=== PATIENT | female | born 1960 | race African-American/Black ===

== ENCOUNTER 2023-12-13 19:56 | Emergency (ER) | payer BC ==
[~2023-12-13] VITALS: Ht 162.6 cm; Wt 73.0 kg
[2023-12-13 21:38] VITALS: BP 150/71; PULSE 74; RESP 17; TEMP 98; O2SAT 100
[2023-12-14 00:41] LABS: BASOPHILS % 1.3 % (0.0-2.0); DIFFERENTIAL COMMENT 0; EOSINOPHILS % 4.4 % (0.0-5.0); HEMATOCRIT. 34.2 % (36.0-48.0); HEMOGLOBIN. 10.8 g/dL (12.0-16.0); LYMPHOCYTES % 41.1 % (20.0-50.0); MEAN CORPUSCULAR HEMOGLOBIN 23.6 pg (28.0-32.0); MEAN CORPUSCULAR HGB CONC 31.7 g/dL (31.0-37.0); MEAN CORPUSCULAR VOLUME 74.5 fL (81.0-99.0); MEAN PLATELET VOLUME 8.9 fl (7.4-10.4); NEUTROPHILS % 44.2 % (40.0-76.0); PLATELET 214 x1000/uL (130-400); RED BLOOD CELL COUNT 4.59 mill/uL (4.2-5.4); RED CELL DISTRIBUTION WIDTH 14.6 % (11.6-14.6); WHITE BLOOD COUNT 5.6 x1000/uL (4.5-11.0)
[2023-12-14 00:56] LABS: ALANINE AMINOTRANSFERASE 22 IU/L (10-49); ALBUMIN 4.3 g/dL (3.2-4.8); ASPARTATE AMINOTRANSFERASE 24 IU/L (<34); BILIRUBIN TOTAL 0.3 mg/dL (0.1-1.0); CALCIUM 8.8 mg/dL (8.7-10.4); CARBON DIOXIDE 29 mEq/L (21-32); CHLORIDE 108 mEq/L (98-107); GLUCOSE 95 mg/dL (70-105); PROTEIN TOTAL 7.4 g/dL (6.0-8.3); SODIUM 141 mEq/L (136-145); T4 FREE 1.15 ng/dL (0.89-1.76); THYROID STIMULATING HORMONE 2.27 uIU/mL (0.55-4.78); UREA NITROGEN BLOOD 23 mg/dL (9-23)
== END 2023-12-14 03:00 | disposition home or self-care (01) ==
LOC: ER 19:56
DX: I87.8 Other specified disorders of veins (principal); L30.9 Dermatitis, unspecified
CPT/HCPCS: 36415; 71045; 80053; 84439; 84443; 84481; 85025; 93970; 99284